=== PATIENT | female | born 1975 | race Caucasian/White ===

== ENCOUNTER 2017-06-24 06:38 | Day surgery (SDC) | payer BC ==
[~2017-06-24] VITALS: Ht 160 cm; Wt 112.9 kg
[2017-06-24 08:10] VITALS: Ht 160 cm; Wt 112.9 kg
[2017-06-24] MEDS ORDERED: LANS15CA5 PO (08:15)
[2017-06-24] MEDS ORDERED: TIMO5DRO30 BOTH EYES (08:15)
[2017-06-24] MEDS ORDERED: LORA10TA3 PO (08:15)
[2017-06-24] MEDS ORDERED: NAPR500T8 PO (08:15)
[2017-06-24] MEDS ORDERED: LISI2.5T59 PO (08:15)
[2017-06-24] MEDS ORDERED: BEN50 PO (08:15)
[2017-06-24] MEDS ORDERED: FLUO20CA22 PO (08:15)
[2017-06-24] MEDS ORDERED: LOVA20TA PO (08:15)
[2017-06-24 09:00] VITALS: BP 130/76; PULSE 84; RESP 19
--- NOTE | 2017-06-24 09:34 | OPPN ---
Date/Time of Note Date/Time of Note DATE: 06/24/17 TIME: 09:33 Operative Report Preoperative Diagnosis Abdominal pain and vomiting Postoperative Diagnosis Gastritis with erosions Operation/Procedure Performed Esophagogastroduodenoscopy and biopsy Surgeon see signature line seed analysis laboratory assistant None Anesthesia: MAC Estimated blood loss: none Transfusion Required none Specimen Gastric mucosal biopsy Grafts/Implants none Complications none KIN DONNELLY MD Jun 24, 2017 09:34
[2017-06-24] MEDS ORDERED: PROPOFOL 40 ML ONE (09:38)
[2017-06-24 10:00] VITALS: BP 116/75; PULSE 79; RESP 20
--- NOTE | 2017-06-24 16:32 | GILP ---
DATE OF PROCEDURE: 06/24/2017 NAME OF PROCEDURES: Esophagogastroduodenoscopy and biopsy. SURGEON: Kin Tiwari MD PREOPERATIVE DIAGNOSIS: Abdominal pain and vomiting. POSTOPERATIVE DIAGNOSES 1. Gastritis with erosions. 2. Gastric mucosal biopsies were taken for Helicobacter pylori test. INDICATION FOR THE PROCEDURE: Ms. Lina Vitale is a 41-year-old female patient who was complainin g of upper abdominal pain associated with vomiting. [facility] The procedure and possible complications are well explained to the patient. The patient understood and consented to the procedure. DESCRIPTION OF PROCEDURE: Under the influence of anesthesia, the gastroscope was carefully introduc ed into the esophagus and under direct vision, it was advanced to the stomach and through the pyloru s into the duodenal bulb and descending duodenum. FINDINGS: ESOPHAGUS: The mucosa was normal. STOMACH: The patient had gastritis with erosions. Gastric mucosal biopsies were taken for H. pylor i test. Duodenum was normal. She tolerated the procedure very well and there was no complication from the procedure. At the end of the procedures, she was awake with stable vital signs and she was discharged home to the care of her family. IMPRESSION: 1. Gastritis with erosions. 2. Gastric mucosal biopsies were taken for Helicobacter pylori test. PLAN: 1. Continue omeprazole. 2. Add Zantac 300 mg p.o. at bedtime. 3. Await H. pylori test report. Dictated By: KIN TONY/SALBADOR Conf#: [id number] DID#: [id number]
== END 2017-06-24 14:50 | disposition home or self-care (01) ==
LOC: GIL 06:38
PROVIDERS: ATTEND Internal Medicine Gastroenterology
DX: K29.50 Unspecified chronic gastritis without bleeding (principal); E11.9 Type 2 diabetes mellitus without complications; Z79.4 Long term (current) use of insulin; J45.909 Unspecified asthma, uncomplicated; I10 Essential (primary) hypertension; E66.01 Morbid (severe) obesity due to excess calories; Z68.41 Body mass index [BMI] 40.0-44.9, adult
CPT/HCPCS: 43239; 82962; 84703; 88305; 88312; Z7610

== ENCOUNTER 2018-08-16 06:22 | Day surgery (SDC) | END 2018-08-16 14:54 | disposition home or self-care (01) ==